=== PATIENT | female | born 1935 | race Caucasian/White ===

== ENCOUNTER 2016-12-27 00:48 | Inpatient (IN) | payer MEDICARE, BC ==
[~2016-12-27 00:48] MED LIST: ALBUTEROL SULFATE INH; AMITRIPTYLINE H25 M1 PO; ASPIR 8181 MG PO; ATACAND32 MG; ATORVASTATIN CA20 MG PO; CALCIUM W/VIT D1 TA PO; CALCIUM W/VIT1 EACH PO; CALCIUM600 MG; CENTRUM SILVER1 TA PO; COREG12.5 MG; COREG25 M1 PO; COREG25 MG PO; COZAAR25 MG PO; CRANBERRY500 M PO; LASIX20 M1 PO; LASIX20 MG PO; LEVOXYL50 MCG PO; LOSARTAN POTAS100 MG PO; MULTIVITAMIN1 CAP; NEURONTIN600 M1 PO; OCUVITE LUTEIN1 CAP PO; PEPCID20 MG PO; POTASSIUM CHLO10 ME2 PO; PROTONIX40 M1 PO; SENOKOT8.6 MG PO; TYLENOL325 MG PO; TYLENOL500 MG; TYLENOL650 MG PO; ULTRAM50 MG PO; VITAMIN D400 UNIT; VITAMIN D50000 UNIT PO
[2016-12-27] MEDS ORDERED: ASPIRIN325 M3 PO (01:38)
[2016-12-27] MEDS ORDERED: BIOTIN5000 MCG PO (01:39)
[2016-12-27] MEDS ORDERED: ELIQUIS5 M1 PO (01:40)
[2016-12-27 01:54] LABS: BASO % 0.3 % (0-2); BASO ABSOLUTE COUNT 0.1 tho/cmm (0.0-0.2); EOS % 1.4 % (0-7); EOSINOPHIL ABSOLUTE COUNT 0.2 tho/cmm (0.0-0.7); HCT-HEMATOCRIT 30.7 % (34.0-49.0); HGB-HEMOGLOBIN 9.7 gm/dl (12.0-15.5); IMMATURE GRANULOCYTES ABSOLUTE 0.06 tho/cmm (0-0.03); IMMATURE GRANULOCYTES PERCENT 0.4 % (0-0.3); LYMPH % 16.8 % (20-45); LYMPH ABSOLUTE COUNT 2.8 tho/cmm (0.8-4.5); MCH (MEAN CORPUSCULAR HGB) 28.4 pg (28.0-32.0); MCHC MEAN CORPUSCULAR HGB CONC 31.6 % (32.0-36.0); MEAN PLATELET VOLUME 11.9 cmc (9.4-12.4); MONO % 6.3 % (0-12); MONOCYTE ABSOLUTE COUNT 1.1 tho/cmm (0.0-1.2); NEUTROPHIL ABSOLUTE COUNT 12.7 tho/cmm (1.6-8.0); NEUTROPHIL-AUTOMATED 12.7 tho/cmm (1.6-8.0); NEUTROPHILS % 74.8 % (40-80); PLATELET COUNT 215 tho/cmm (150-450); RED BLOOD COUNT 3.41 mil/cmm (4.00-5.20); RED CELL DISTRIBUTION WIDTH 14.8 % (12.4-16.4); WHITE BLOOD COUNT 16.9 tho/cmm (4.0-10.0)
[2016-12-27] MEDS ORDERED: PEPCID20 M1 PO (02:03)
[2016-12-27] MEDS ORDERED: PRESERVISION A1 EAC5 PO (02:07)
[2016-12-27] MEDS ORDERED: VITAMIN D32000 UNI3 PO (02:08)
[2016-12-27 02:10] LABS: URINE BILIRUBIN NEGATIVE (NEG); URINE BLOOD SMALL (NEG); URINE GLUCOSE (UA) NEGATIVE (NEG); URINE KETONE NEGATIVE (NEG); URINE LEUKOCYTE ESTERASE NEGATIVE (NEG); URINE NITRITE NEGATIVE (NEG); URINE PROTEIN NEGATIVE (NEG); URINE SPECIFIC GRAVITY 1.015 (1.003-1.030)
[2016-12-27 02:11] LABS: URINE APPEARANCE CLEAR; URINE COLOR YELLOW
[2016-12-27 02:13] LABS: ALB/GLOB RATIO 0.7 (0.8-2.0); ALKALINE PHOSPHATASE 92 U/L (33-138); ALT/SGPT 21 U/L (12-78); AMYLASE 12 U/L (20-90); ANION GAP 13 mmol/L (0-20); AST/SGOT 15 U/L (10-40); BLOOD UREA NITROGEN 47 mg/dl (6-24); CALCIUM 8.7 mg/dl (8.5-10.5); CARBON DIOXIDE-VENOUS 27 mmol/L (22-32); CHLORIDE 109 mmol/l (96-110); CREATININE 0.86 mg/dl (0.50-1.10); GLUCOSE 215 mg/dL (70-110); LIPASE 79 U/L (73-393); POTASSIUM 4.5 mmol/L (3.7-5.1); SODIUM 144 mmol/L (135-145); eGFR VALUE FOR BLACK 73 mL/Min
[2016-12-27 02:16] LABS: BILIRUBIN,TOTAL 0.3 mg/dl (0-1.5)
[2016-12-27 02:18] LABS: URINE EPITHELIAL CELLS RARE /[HPF] (0-10); URINE RBC 0-3 /[HPF] (0-5); URINE WBC 0-1 /[HPF] (0-5)
[2016-12-27 03:38] LABS: C-REACTIVE PROTEIN 0.3 mg/dl (0-0.9)
[2016-12-27 03:57] LABS: PROCALCITONIN <0.05 ng/ml (0.05-0.09)
[2016-12-27 05:25] LABS: BASO % 0.3 % (0-2); BASO ABSOLUTE COUNT 0.1 tho/cmm (0.0-0.2); EOS % 0.9 % (0-7); EOSINOPHIL ABSOLUTE COUNT 0.1 tho/cmm (0.0-0.7); HCT-HEMATOCRIT 29.2 % (34.0-49.0); IMMATURE GRANULOCYTES ABSOLUTE 0.04 tho/cmm (0-0.03); IMMATURE GRANULOCYTES PERCENT 0.3 % (0-0.3); LYMPH % 19.3 % (20-45); MCH (MEAN CORPUSCULAR HGB) 27.8 pg (28.0-32.0); MCHC MEAN CORPUSCULAR HGB CONC 30.8 % (32.0-36.0); MCV (MEAN CELL VOLUME) 90.1 fl (82.0-96.0); MEAN PLATELET VOLUME 12.3 cmc (9.4-12.4); MONO % 7.1 % (0-12); MONOCYTE ABSOLUTE COUNT 1.1 tho/cmm (0.0-1.2); NEUTROPHILS % 72.1 % (40-80); PLATELET COUNT 234 tho/cmm (150-450); RED BLOOD COUNT 3.24 mil/cmm (4.00-5.20); RED CELL DISTRIBUTION WIDTH 14.8 % (12.4-16.4); WHITE BLOOD COUNT 15.3 tho/cmm (4.0-10.0)
[2016-12-27 05:32] LABS: ANION GAP 13 mmol/L (0-20); BLOOD UREA NITROGEN 46 mg/dl (6-24); CALCIUM 8.6 mg/dl (8.5-10.5); CARBON DIOXIDE-VENOUS 26 mmol/L (22-32); CHLORIDE 111 mmol/l (96-110); CREATININE 0.74 mg/dl (0.50-1.10); GLUCOSE 205 mg/dL (70-110); POTASSIUM 4.3 mmol/L (3.7-5.1); SODIUM 146 mmol/L (135-145); eGFR VALUE FOR BLACK 88 mL/Min
[2016-12-27 14:57] LABS: HCT-HEMATOCRIT 28.2 % (34.0-49.0); HGB-HEMOGLOBIN 8.6 gm/dl (12.0-15.5); MCV (MEAN CELL VOLUME) 90.7 fl (82.0-96.0); RED CELL DISTRIBUTION WIDTH 14.8 % (12.4-16.4)
[2016-12-27 22:17] LABS: HCT-HEMATOCRIT 24.4 % (34.0-49.0); HGB-HEMOGLOBIN 7.6 gm/dl (12.0-15.5); MCV (MEAN CELL VOLUME) 90.7 fl (82.0-96.0)
[2016-12-28 05:55] LABS: BASO % 0.3 % (0-2); EOS % 2.1 % (0-7); EOSINOPHIL ABSOLUTE COUNT 0.3 tho/cmm (0.0-0.7); HGB-HEMOGLOBIN 8.8 gm/dl (12.0-15.5); IMMATURE GRANULOCYTES ABSOLUTE 0.03 tho/cmm (0-0.03); IMMATURE GRANULOCYTES PERCENT 0.2 % (0-0.3); LYMPH % 26.5 % (20-45); LYMPH ABSOLUTE COUNT 3.5 tho/cmm (0.8-4.5); MCH (MEAN CORPUSCULAR HGB) 28.8 pg (28.0-32.0); MCHC MEAN CORPUSCULAR HGB CONC 31.4 % (32.0-36.0); MCV (MEAN CELL VOLUME) 91.5 fl (82.0-96.0); MEAN PLATELET VOLUME 11.7 cmc (9.4-12.4); MONOCYTE ABSOLUTE COUNT 1.2 tho/cmm (0.0-1.2); NEUTROPHIL ABSOLUTE COUNT 8.1 tho/cmm (1.6-8.0); NEUTROPHIL-AUTOMATED 8.1 tho/cmm (1.6-8.0); NEUTROPHILS % 61.9 % (40-80); PLATELET COUNT 179 tho/cmm (150-450); RED BLOOD COUNT 3.06 mil/cmm (4.00-5.20); RED CELL DISTRIBUTION WIDTH 14.9 % (12.4-16.4); WHITE BLOOD COUNT 13.1 tho/cmm (4.0-10.0)
[2016-12-28 06:51] LABS: ANION GAP 11 mmol/L (0-20); BLOOD UREA NITROGEN 24 mg/dl (6-24); CALCIUM 7.8 mg/dl (8.5-10.5); CARBON DIOXIDE-VENOUS 26 mmol/L (22-32); CHLORIDE 113 mmol/l (96-110); GLUCOSE 150 mg/dL (70-110); POTASSIUM 3.9 mmol/L (3.7-5.1); SODIUM 146 mmol/L (135-145); eGFR VALUE FOR BLACK >90 mL/Min
[2016-12-28 18:23] LABS: HCT-HEMATOCRIT 27.3 % (34.0-49.0); HGB-HEMOGLOBIN 8.6 gm/dl (12.0-15.5); MCV (MEAN CELL VOLUME) 92.2 fl (82.0-96.0); RED CELL DISTRIBUTION WIDTH 15.1 % (12.4-16.4)
[2016-12-28 19:43] LABS: URINE APPEARANCE CLOUDY; URINE BILIRUBIN NEGATIVE (NEG); URINE BLOOD LARGE (NEG); URINE COLOR YELLOW; URINE GLUCOSE (UA) NEGATIVE (NEG); URINE KETONE NEGATIVE (NEG); URINE LEUKOCYTE ESTERASE POSITIVE (NEG); URINE NITRITE NEGATIVE (NEG); URINE PROTEIN MODERATE (NEG)
[2016-12-28 19:48] LABS: URINE BACTERIA 2+; URINE WBC FULL FIELD /[HPF] (0-5)
[2016-12-28 19:49] LABS: URINE EPITHELIAL CELLS 0-3 /[HPF] (0-10)
[2016-12-29 06:30] LABS: HCT-HEMATOCRIT 24.6 % (34.0-49.0); HGB-HEMOGLOBIN 7.6 gm/dl (12.0-15.5); MCV (MEAN CELL VOLUME) 92.1 fl (82.0-96.0); RED CELL DISTRIBUTION WIDTH 15.2 % (12.4-16.4)
[2016-12-29 06:39] LABS: ANION GAP 11 mmol/L (0-20); BLOOD UREA NITROGEN 18 mg/dl (6-24); CALCIUM 7.9 mg/dl (8.5-10.5); CARBON DIOXIDE-VENOUS 26 mmol/L (22-32); CHLORIDE 112 mmol/l (96-110); CREATININE 0.82 mg/dl (0.50-1.10); GLUCOSE 165 mg/dL (70-110); POTASSIUM 3.8 mmol/L (3.7-5.1); SODIUM 145 mmol/L (135-145); eGFR VALUE FOR BLACK 78 mL/Min
[2016-12-29 14:23] LABS: HCT-HEMATOCRIT 26.1 % (34.0-49.0); HGB-HEMOGLOBIN 8.2 gm/dl (12.0-15.5); MCV (MEAN CELL VOLUME) 92.2 fl (82.0-96.0); RED CELL DISTRIBUTION WIDTH 15.1 % (12.4-16.4)
[2016-12-29] MEDS ORDERED: LASIX20 M1 PO (15:57)
[2016-12-29] MEDS ORDERED: CIPRO250 M2 PO (15:58)
[2016-12-29] MEDS ORDERED: PROTONIX40 M2 PO (15:59)
== END 2016-12-29 17:32 | DRG 378 ==
LOC: EDMED 00:48 → EMR2 04:32 → PCUB 04:34
PROVIDERS: Emergency Medicine Emergency Medical Services; Family Medicine; Nurse Practitioner; Registered Nurse; Specialist; ADMIT Internal Medicine
PROC: 0W3P8ZZ Control Bleeding in Gastrointestinal Tract, Via Natural or Artificial Opening Endoscopic (ICD-10-PCS; principal; 2016-12-27)
PROC: 30233N1 Transfusion of Nonautologous Red Blood Cells into Peripheral Vein, Percutaneous Approach (ICD-10-PCS; 2016-12-28)
DX: K25.4 Chronic or unspecified gastric ulcer with hemorrhage (principal); N39.0 Urinary tract infection, site not specified; I11.0 Hypertensive heart disease with heart failure; I50.9 Heart failure, unspecified; D62 Acute posthemorrhagic anemia; I48.2 Chronic atrial fibrillation; E11.9 Type 2 diabetes mellitus without complications; E03.9 Hypothyroidism, unspecified; E78.5 Hyperlipidemia, unspecified; I25.10 Atherosclerotic heart disease of native coronary artery without angina pectoris; E66.9 Obesity, unspecified; K21.9 Gastro-esophageal reflux disease without esophagitis; M19.90 Unspecified osteoarthritis, unspecified site; Z79.01 Long term (current) use of anticoagulants; Z90.49 Acquired absence of other specified parts of digestive tract; Z90.710 Acquired absence of both cervix and uterus; Z95.0 Presence of cardiac pacemaker; Z95.1 Presence of aortocoronary bypass graft; Z68.39 Body mass index [BMI] 39.0-39.9, adult
CPT/HCPCS: C1751; C9113; J1815; J2405; J2543; J7030; P9016; P9612

== ENCOUNTER 2017-02-20 12:50 | Observation (INO) | payer MEDICARE, BC ==
[~2017-02-20 12:50] MED LIST changes: +ASPIRIN325 M3 PO; +BIOTIN5000 MCG PO; +CIPRO250 M2 PO; +ELIQUIS5 M1 PO; +PEPCID20 M1 PO; +PRESERVISION A1 EAC5 PO; +PROTONIX40 M2 PO; +VITAMIN D32000 UNI3 PO
[2017-02-20] MEDS ORDERED: CEFDINIR300 M1 PO (13:52)
[2017-02-20] MEDS ORDERED: LASIX20 M1 PO (14:00)
[2017-02-20] MEDS ORDERED: LASIX40 M1 PO (14:00)
[2017-02-20] MEDS ORDERED: GLUCOPHAGE XR500 M1 PO (14:02)
[2017-02-20] MEDS ORDERED: IRON325 M3 PO (14:03)
[2017-02-20] MEDS ORDERED: ASPIRIN81 M1 PO (14:04)
[2017-02-20] MEDS ORDERED: COZAAR25 M1 PO (14:06)
[2017-02-20] MEDS ORDERED: BIOTIN5000 MCG PO (14:06)
[2017-02-20 14:15] LABS: BASO % 0.3 % (0-2); EOS % 1.5 % (0-7); EOSINOPHIL ABSOLUTE COUNT 0.2 tho/cmm (0.0-0.7); HCT-HEMATOCRIT 34.2 % (34.0-49.0); HGB-HEMOGLOBIN 10.8 gm/dl (12.0-15.5); IMMATURE GRANULOCYTES ABSOLUTE 0.05 tho/cmm (0-0.03); IMMATURE GRANULOCYTES PERCENT 0.3 % (0-0.3); LYMPH ABSOLUTE COUNT 1.7 tho/cmm (0.8-4.5); MCH (MEAN CORPUSCULAR HGB) 26.7 pg (28.0-32.0); MCHC MEAN CORPUSCULAR HGB CONC 31.6 % (32.0-36.0); MCV (MEAN CELL VOLUME) 84.7 fl (82.0-96.0); MEAN PLATELET VOLUME 12.1 cmc (9.4-12.4); MONO % 9.5 % (0-12); MONOCYTE ABSOLUTE COUNT 1.4 tho/cmm (0.0-1.2); NEUTROPHILS % 76.4 % (40-80); PLATELET COUNT 224 tho/cmm (150-450); RED BLOOD COUNT 4.04 mil/cmm (4.00-5.20); WHITE BLOOD COUNT 14.4 tho/cmm (4.0-10.0)
[2017-02-20 14:25] LABS: INR 1.5 INR (0.9-1.1); PROTHROMBIN TIME 17.5 SECONDS (9.0-13.6)
[2017-02-20 14:35] LABS: ALB/GLOB RATIO 0.6 (0.8-2.0); ALBUMIN 3.1 g/dl (3.5-5.0); ALKALINE PHOSPHATASE 131 U/L (33-138); ALT/SGPT 15 U/L (12-78); ANION GAP 11 mmol/L (0-20); AST/SGOT 16 U/L (10-40); BILIRUBIN,TOTAL 0.4 mg/dl (0-1.5); BLOOD UREA NITROGEN 11 mg/dl (6-24); CALCIUM 8.8 mg/dl (8.5-10.5); CARBON DIOXIDE-VENOUS 28 mmol/L (22-32); CHLORIDE 105 mmol/l (96-110); GLUCOSE 219 mg/dL (70-110); POTASSIUM 3.6 mmol/L (3.7-5.1); SODIUM 140 mmol/L (135-145); eGFR VALUE FOR BLACK 70 mL/Min
[2017-02-20] MEDS ORDERED: PROTONIX40 M2 PO (17:34)
[2017-02-21 06:00] LABS: ANION GAP 11 mmol/L (0-20); BLOOD UREA NITROGEN 12 mg/dl (6-24); CALCIUM 8.4 mg/dl (8.5-10.5); CARBON DIOXIDE-VENOUS 28 mmol/L (22-32); CHLORIDE 107 mmol/l (96-110); CREATININE 0.82 mg/dl (0.50-1.10); GLUCOSE 169 mg/dL (70-110); POTASSIUM 3.7 mmol/L (3.7-5.1); SODIUM 142 mmol/L (135-145); eGFR VALUE FOR BLACK 78 mL/Min
[2017-02-21 06:02] LABS: BASO % 0.8 % (0-2); BASO ABSOLUTE COUNT 0.1 tho/cmm (0.0-0.2); EOSINOPHIL ABSOLUTE COUNT 0.4 tho/cmm (0.0-0.7); HCT-HEMATOCRIT 31.6 % (34.0-49.0); HGB-HEMOGLOBIN 9.6 gm/dl (12.0-15.5); IMMATURE GRANULOCYTES ABSOLUTE 0.03 tho/cmm (0-0.03); IMMATURE GRANULOCYTES PERCENT 0.3 % (0-0.3); LYMPH % 22.2 % (20-45); LYMPH ABSOLUTE COUNT 2.5 tho/cmm (0.8-4.5); MCH (MEAN CORPUSCULAR HGB) 25.7 pg (28.0-32.0); MCHC MEAN CORPUSCULAR HGB CONC 30.4 % (32.0-36.0); MCV (MEAN CELL VOLUME) 84.7 fl (82.0-96.0); MEAN PLATELET VOLUME 11.5 cmc (9.4-12.4); MONO % 12.5 % (0-12); MONOCYTE ABSOLUTE COUNT 1.4 tho/cmm (0.0-1.2); NEUTROPHIL ABSOLUTE COUNT 6.7 tho/cmm (1.6-8.0); NEUTROPHIL-AUTOMATED 6.7 tho/cmm (1.6-8.0); NEUTROPHILS % 60.2 % (40-80); PLATELET COUNT 211 tho/cmm (150-450); RED BLOOD COUNT 3.73 mil/cmm (4.00-5.20); RED CELL DISTRIBUTION WIDTH 16.1 % (12.4-16.4); WHITE BLOOD COUNT 11.1 tho/cmm (4.0-10.0)
[2017-02-22] MEDS ORDERED: AUGMENTIN 875-1 EAC2 PO (15:57)
[2017-02-22] MEDS ORDERED: ANUSOL-HC25 MG PR (16:09)
== END 2017-02-22 16:40 ==
LOC: EDMED 12:50 → EMR2 15:51 → CAR1 16:20
PROVIDERS: Emergency Medicine; ADMIT Hospitalist
PROC: 0DJ08ZZ Inspection of Upper Intestinal Tract, Via Natural or Artificial Opening Endoscopic (ICD-10-PCS; 2017-02-21)
PROC: 05HC33Z Insertion of Infusion Device into Left Basilic Vein, Percutaneous Approach (ICD-10-PCS; 2017-02-21)
PROC: 0DJD8ZZ Inspection of Lower Intestinal Tract, Via Natural or Artificial Opening Endoscopic (ICD-10-PCS; principal; 2017-02-22)
DX: K64.8 Other hemorrhoids (principal); K57.30 Diverticulosis of large intestine without perforation or abscess without bleeding; K44.9 Diaphragmatic hernia without obstruction or gangrene; I11.0 Hypertensive heart disease with heart failure; I50.9 Heart failure, unspecified; I48.91 Unspecified atrial fibrillation; I25.10 Atherosclerotic heart disease of native coronary artery without angina pectoris; E11.40 Type 2 diabetes mellitus with diabetic neuropathy, unspecified; E03.9 Hypothyroidism, unspecified; K21.9 Gastro-esophageal reflux disease without esophagitis; E78.5 Hyperlipidemia, unspecified; M19.90 Unspecified osteoarthritis, unspecified site; Z79.01 Long term (current) use of anticoagulants; Z79.2 Long term (current) use of antibiotics; Z79.84 Long term (current) use of oral hypoglycemic drugs; Z79.899 Other long term (current) drug therapy; Z88.8 Allergy status to other drugs, medicaments and biological substances; Z87.440 Personal history of urinary (tract) infections; Z90.710 Acquired absence of both cervix and uterus; Z90.49 Acquired absence of other specified parts of digestive tract; Z90.89 Acquired absence of other organs; Z96.653 Presence of artificial knee joint, bilateral; Z95.0 Presence of cardiac pacemaker; Z95.1 Presence of aortocoronary bypass graft; Z98.49 Cataract extraction status, unspecified eye; Z98.890 Other specified postprocedural states
CPT/HCPCS: C1751; G0378; J1815; J2405